=== PATIENT | male | born 1955 | race African-American/Black ===

== ENCOUNTER 2017-02-17 21:49 | Emergency (ER) | payer BC, OTHER ==
[~2017-02-17] VITALS: Ht 172.7 cm; Wt 77.1 kg
[2017-02-17 23:20] VITALS: BP 141/91
== END 2017-02-17 23:10 | disposition home or self-care (01) ==
LOC: ER 21:49
DX: L50.9 Urticaria, unspecified (principal); I10 Essential (primary) hypertension; E78.00 Pure hypercholesterolemia, unspecified; Z91.013 Allergy to seafood

== ENCOUNTER 2017-08-29 19:19 | Emergency (ER) | payer BC, OTHER ==
[~2017-08-29] VITALS: Ht 170.2 cm; Wt 79.8 kg
[2017-08-29] MEDS ORDERED: NORCO 5-325 TA1 EACH PO (22:43)
[2017-08-29] MEDS ORDERED: NAPROSYN500 MG PO (22:43)
[2017-08-29 22:58] VITALS: BP 133/74
== END 2017-08-29 22:58 | disposition still patient (30) ==
LOC: ER 19:19
DX: S86.911A Strain of unspecified muscle(s) and tendon(s) at lower leg level, right leg, initial encounter (principal); I10 Essential (primary) hypertension; E78.00 Pure hypercholesterolemia, unspecified; Z91.013 Allergy to seafood; X58.XXXA Exposure to other specified factors, initial encounter; Y93.89 Activity, other specified; Y92.89 Other specified places as the place of occurrence of the external cause; Y99.8 Other external cause status